=== PATIENT | female | born 2000 | race Two or more races ===

== ENCOUNTER 2020-12-12 09:37 | Emergency (ER) | payer OTHER ==
[~2020-12-12] VITALS: Ht 162.6 cm; Wt 65.0 kg
[2020-12-12 10:12] VITALS: BP 117/62
== END 2020-12-12 10:53 | disposition home or self-care (01) ==
LOC: EMS 09:42
DX: Z11.1 Encounter for screening for respiratory tuberculosis (principal)
CPT/HCPCS: 71045; 99283